=== PATIENT | female | born 1945 | race Caucasian/White ===

== ENCOUNTER 2023-02-27 10:00 | Outpatient (CLI) | payer MEDICARE, SELFPAY ==
[2023-02-27 10:18] LABS: Hematocrit 45.1 % (35.0-42.0); Hemoglobin 14.7 g/dL (11.7-13.8); Mean Corpuscular HGB Conc 32.6 g/dL (32.0-36.0); Mean Corpuscular Hemoglobin 29.8 pg (27.0-31.0); Mean Corpuscular Volume 91.5 fL (78.0-102.0); Mean Platelet Volume 9.4 fl (9.2-11.8); Platelet Count Result 223 K/mm3 (150-420); Red Blood Count 4.93 M/mm3 (4.20-5.40); Red Cell Distribution Width 12.9 % (11.6-14.4); White Blood Count 4.4 K/mm3 (4.8-10.8)
[2023-02-27 10:49] LABS: Alanine Aminotransferase 19 U/L (14-59); Alkaline Phosphatase 88 U/L (46-116); Anion Gap 6 mmol/L (8-16); Aspartate Amino Transferase 16 U/L (15-37); Bilirubin,Total 0.4 mg/dL (0.00-1.00); Blood Urea Nitrogen 13 mg/dL (7-18); Calcium 9.1 mg/dL (8.5-10.1); Carbon Dioxide 32 mmol/L (21-32); Chloride 103 mmol/L (98-108); Cholesterol 214 mg/dL (0-200); Estimated Glomerular Filt Rate 38; Glucose 115 mg/dL (70-99); HDL Direct 61 mg/dL (40-60); LDL Cholesterol Calculated 126 mg/dL (<130); Osmolality Calculated 293 mOsm/kg (285-295); Potassium 4.2 mmol/L (3.5-5.1); Sodium 141 mmol/L (136-145); Total Protein 7.6 g/dL (6.4-8.2); Triglycerides 133 mg/dL (0-150)
== END 2023-02-27 10:01 | disposition home or self-care (01) ==
LOC: CHSLAB 10:06
PROVIDERS: PCP Family Medicine; Visit Provider Family Medicine
DX: I25.10 Atherosclerotic heart disease of native coronary artery without angina pectoris (principal)
CPT/HCPCS: 36415; 80053; 80061; 85027

== ENCOUNTER 2023-03-09 13:38 | Outpatient (CLI) | payer MEDICARE, SELFPAY ==
--- NOTE | 2023-03-09 13:47 | ECHO_ITS ---
Patient Info Name: Lily Ruiz Age: 77 years : 1945 Gender: Female Ht: 62 in Wt: 132 lbs BSA: 1.63 m2 HR: 61 bpm BP: 151 / 82 mmHg Heart Rhythm: Sinus Rhythm Technical Quality: Fair Exam Date: 03/09/2023 2:14 PM Exam Location: [facility] Patient Status: Outpatient Admit Date: 03/09/2023 Staff Ordering Physician: Dangelo Cloud DO Banking Manager: Cassandra Bills RDCS Attending Provider: Dangelo Cloud DO Referring Physician: Pedro Luis PRITCHETT; Exam Type: CA echo doppler color flow Study Info Indications - Heart failure, I50.9 Complete two-dimensional, color flow and Doppler transthoracic echocardiogram is performed. Summary 1. Complete two-dimensional, color flow and Doppler transthoracic echocardiogram is performed. 2. Left ventricular chamber dimension is normal. 3. Left ventricular systolic function is normal, estimated at 65-70%. 4. The left ventricular diastolic function is grade II diastolic dysfunction. 5. E/e' 12 is mildly elevated. 6. There is mild aortic valve sclerosis. 7. There is mild aortic valve regurgitation. 8. There is trace mitral valve regurgitation. 9. There is moderate tricuspid valve regurgitation. 10. No pulmonary hypertension, estimated pulmonary arterial systolic pressure is 36 mmHg. 11. There is trace pulmonic regurgitation. Left Ventricle E/e' 12 is mildly elevated. Left ventricular chamber dimension is normal. Left ventricular systolic function is normal, estimated at 65-70%. The left ventricular diastolic function is grade II diastolic dysfunction. Right Ventricle Right ventricular systolic function is normal and with normal TAPSE 1.9 cm. Right ventricular chamber dimension is normal. Left Atria Left atrial chamber dimension is normal. Right Atria Right atrial chamber dimension is normal. Aortic Valve The aortic valve is trileaflet. There is mild aortic valve sclerosis. There is no aortic valve stenosis. There is mild aortic valve regurgitation. Pulmonic Valve There is trace pulmonic regurgitation. Mitral Valve There is no mitral valve stenosis. There is trace mitral valve regurgitation. Tricuspid Valve There is moderate tricuspid valve regurgitation. No pulmonary hypertension, estimated pulmonary arterial systolic pressure is 36 mmHg. Pericardium/Pleural There is no pericardial effusion. Inferior Vena Cava Normal inferior vena cava with >50% collapse upon inspiration consistent with normal right atrial pressure, 5 mmHg. Aorta The aortic root size at the sinus of Valsalva is normal. Pericardium Name Value Normal Pericardium 2D/MM Pericardial Effusion Diastole (MM) 2.8 cm Left Ventricular Outflow Tract Name Value Normal LVOT 2D LVOT Diameter 2.0 cm LVOT Doppler LVOT Peak Velocity 103 cm/s LVOT Peak Gradient 4 mmHg LVOT Mean Gradient 2 mmHg LVOT VTI
== END 2023-03-09 13:39 | disposition home or self-care (01) ==
LOC: CHSIMG 13:39
PROVIDERS: PCP Family Medicine; Visit Provider Family Medicine
DX: I50.9 Heart failure, unspecified (principal); I07.1 Rheumatic tricuspid insufficiency
CPT/HCPCS: 93306

== ENCOUNTER 2024-03-04 09:01 | Outpatient (CLI) | payer MEDICARE, SELFPAY ==
[2024-03-04 09:33] LABS: Basophils Absolute Auto 0.05 K/mm3 (0.00-0.10); Basophils Percent Auto 1.1 % (0.0-1.0); Eosinophils Percent Auto 4.4 % (1.0-6.0); Hematocrit 43.8 % (35.0-42.0); Hemoglobin 14.1 g/dL (11.7-13.8); Immature Granulocyte Absolute 0.02 K/mm3 (0.00-0.00); Immature Granulocyte Percent A 0.4 % (0.0-0.0); Lymphocytes Absolute Auto 1.06 K/mm3 (1.10-4.50); Lymphocytes Percent Auto 23.4 % (18.0-42.0); Mean Corpuscular HGB Conc 32.2 g/dL (32-36); Mean Corpuscular Hemoglobin 28.9 pg (27.0-31.0); Mean Corpuscular Volume 89.8 fL (78.0-102.0); Monocytes Absolute Auto 0.37 K/mm3 (0.10-0.90); Monocytes Percent Auto 8.2 % (2.0-11.0); Neutrophils Absolute Auto 2.83 K/mm3 (1.70-7.20); Neutrophils Percent Auto 62.5 % (50.0-70.0); Platelet Count Result 236 K/mm3 (150-420); Red Blood Count 4.88 M/mm3 (4.20-5.40); Red Cell Distribution Width 13.4 % (11.6-14.4); White Blood Count 4.5 K/mm3 (4.8-10.8)
[2024-03-04 10:08] LABS: Alanine Aminotransferase 21 U/L (14-59); Albumin Level 3.7 g/dL (3.4-5.0); Alkaline Phosphatase 69 U/L (46-116); Anion Gap 7 mmol/L (4-12); Aspartate Amino Transferase 16 U/L (15-37); Bilirubin,Total 0.5 mg/dL (0.00-1.00); Blood Urea Nitrogen 16 mg/dL (7-18); Calcium 9.3 mg/dL (8.5-10.1); Carbon Dioxide 31 mmol/L (21-32); Chloride 102 mmol/L (98-108); Cholesterol 176 mg/dL (0-200); Estimated Glomerular Filt Rate 40; Glucose 112 mg/dL (70-99); HDL Direct 64 mg/dL (40-60); LDL Cholesterol Calculated 94 mg/dL (<130); Osmolality Calculated 292 mOsm/kg (285-295); Potassium 4.1 mmol/L (3.5-5.1); Sodium 140 mmol/L (136-145); Total Protein 7.3 g/dL (6.4-8.2); Triglycerides 88 mg/dL (0-150)
[2024-03-04 10:09] LABS: Thyroid Stimulating Hormone Reflex 1.76 u/IU/mL (0.36-3.74)
== END 2024-03-04 09:02 | disposition home or self-care (01) ==
LOC: CHSLAB 09:02
PROVIDERS: PCP Family Medicine; Visit Provider Family Medicine
DX: E03.9 Hypothyroidism, unspecified (principal); I25.10 Atherosclerotic heart disease of native coronary artery without angina pectoris
CPT/HCPCS: 36415; 80053; 80061; 84443; 85025

== ENCOUNTER 2024-04-03 11:25 | Outpatient (CLI) | payer MEDICARE, SELFPAY ==
--- NOTE | ~2024-04-03 | DEXA_ITS ---
? Bone Density Report? Name:? GERMAINE VANEGAS Patient ID:??? [id number] Age:? 78 Sex:? Female Ethnicity:? White Date of : 1945 Indication: postmenopausal; screening for osteoporosis; height loss; Referring Provider: Dangelo Cloud Study: Bone densitometry was performed. Exam Date: April 03, 2024 Accession number: [id number] Bone Density: Region? BMD??? T-score? Z-score?? Classification AP Spine(L1, L2, L3)? 1.130??? 1.0?3.6? Normal Femoral Neck (Left)? 0.812?? -0.3? 2.0? Normal Total Hip (Left)? 0.840?? -0.8? 1.2? Normal Femoral Neck (Right)? 0.700?? -1.3? 1.0? Osteopenia Total Hip (Right)? 0.804?? -1.1? 1.0? Osteopenia Femoral Neck Mean? 0.756?? -0.8? 1.5? Normal Total Hip Mean? 0.822?? -1.0? 1.1? Normal World Health Organization criteria for BMD impression classify patients as: Normal (T-score at or above -1.0), Osteopenia (T-score between -1.0 and -2.5), or Osteoporosis (T-score at or below -2.5). 10-year Fracture Risk(1): Major Osteoporotic Fracture? 12% Hip Fracture? 2.7% Reported Risk Factors: [place] (), Neck BMD=0.700, BMI=22.0 (1) FRAX? Version 3.08. Fracture probability calculated for an untreated patient. Fracture probability may be lower if the patient has received treatment. Clinical Information Provided by Patient: Has used the following medications: Vitamin D Patient maximum height was 65 Menopause Age: 48 No regular weight bearing exercise Onset of menses at age 11 Number of children 0 Impression: The patient has low bone mass, based on the Right Femoral Neck T- score. Discussion: BONE DENSITY IS LOW AT ONE OR MORE SKELETAL SITES. This patient's lowest T-score is low at one or more skeletal sites.? It meets the World Health Organization's (WHO) criteria for ?low bone mass?? (T-score between -1.0 and -2.5).? The patient's 10-year risk of fracture as calculated by FRAX is less than the threshold where pharmacological therapy is recommended by the National Osteoporosis Foundation (NOF).? However, all treatment decisions require clinical judgment and consideration of individual patient factors, including patient preferences, comorbidities, previous drug use, risk factors not captured in the FRAX model (e.g., frailty, falls, vitamin D deficiency, increased bone turnover, interval significant decline in bone density) and possible under or overestimation of fracture risk by FRAX. The patient should follow a healthful lifestyle (good nutrition with adequate calcium and vitamin D, and appropriate weight-bearing exercise). Follow-Up: Consider repeating this study in 2 to 3 years to
== END 2024-04-03 11:26 | disposition home or self-care (01) ==
PROVIDERS: PCP Family Medicine; Visit Provider Family Medicine
DX: Z78.0 Asymptomatic menopausal state (principal); M85.89 Other specified disorders of bone density and structure, multiple sites
CPT/HCPCS: 77080

== ENCOUNTER 2025-03-10 10:34 | Outpatient (CLI) | payer MEDICARE, SELFPAY ==
--- OUTSIDE RECORDS SUMMARY | 2025-03-10 10:49 | XMS_ITS | Encounter Summary ---
Author Organization [facility] Address [address] [place] [id number] Care Team Providers Care Floor Specialist Name Role Phone Al Guadalupe MD Primary Care Provider [phone] Tien Sabillon MD Unavailable Unavailable Glen Morley MD Primary Care Provider Camilo Tobin MD Unavailable [phone] Adrianne Hinton APRN SUBSTATION OPERATOR TRANSFORMING-C Unavailable [phone] Devaughn Sandy MD Unavailable [phone] Encounter Details Date Type Department Care Team (Late st Contact Info) Description 03/29/2019 Abstract [facility] CONVERSION [address] [place] [address] , Generic Conversion, Social History Tobacco Use Types Packs/Day Years Used Date Smoking Tobacco: Never Smokeless Tobacco: Never Alcohol Use Standard Drinks/Week Comments No 0 (1 standard drink = 0.6 oz pur e alcohol) Comments Unknown Sex and Gender Information Value Date Recorded Sex Assigned at Not on file Legal Sex Female 7:53 PM CDT Gender Identity Not on file Sexual Orientation Not on file 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 Not on file Not on file documented as of this encounter Plan of Treatment Not on file documented as of this encounter Visit Diagnoses Not on filedocumented in this encounter Additional Health Concerns Infection Onset Date Last Indicated Resolved Time COVID-19 Rule Out 08/13/2021 08/13/2021 08/13/2021 8:03 PM CDT documented as of this encounter Care Teams Floor Specialist Relationship Specialty Start Date End Date Al Guadalupe MD [address] [place] [address] PCP - General FAMILY PRACTICE 11/03/16 08/01/21 Glen Morley MD [address] [place] [phone] PCP - General [facility] PRACTICE 08/02/21 Tien Sabillon MD [address] [place] [phone] [place] Digital Strategy Director INTERVENTIONAL CARDIOLOGY 11/01/18 Camilo Tobin MD [address] [place] [phone] Consulting Physician CARDIOVASCULAR DISEASE 08/14/21 Adrianne Hinton APRN, SUBSTATION OPERATOR TRANSFORMING-C [address] [place] [address] [address] [place] [address] NURSE PRACTITIONER 08/14/21 Devaughn Sandy MD [address] [facility] [place] [address] FAMILY PRACTICE 08/14/21 documented as of this encounter
--- OUTSIDE RECORDS SUMMARY | 2025-03-10 10:49 | XMS_ITS | Clinical Summary ---
Author Organization [facility] Address [address] [place] [address] Care Team Providers Care Woodyard Operator Name Role Phone Tien Sabillon MD Unavailable Unavailable Glen Morley MD Primary Care Provider Camilo Tobin MD Unavailable [phone] Adrianne Hinton APRN, GAS DESULFURIZER-C Unavailable Devaughn Sandy MD Unavailable [phone] Allergies No known active allergies Medications aspirin (ASPIR-81) 81 MG Tab EC Take 1 tablet by mouth daily. 2 Active carvedilol (COREG) 25 MG tablet Take 1 tablet by mouth 2 (two) times daily. 3 Active rosuvastatin (CRESTOR) 20 MG tablet Take 20 mg by mouth daily. 5 Active nitroGLYCERIN (NITROSTAT) 0.[address] 0.4 mg under the tongue every 5 (five) minutes as needed. 2 Active Liniments (SALONPAS) Pads Apply 1 each topically daily as needed. 5 Active AMLODIPINE 5 MG tablet TAKE 1 TABLET BY MOUTH DAILY 90 tablet 3 0 Active omeprazole 20 MG capsule Take 2 capsules (40 mg total) by mouth 2 (two) times daily. 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 file Not on file Not on file Not on file Not on file Not on file Last Filed Vital Signs Vital Sign Reading Time Taken Comments Blood Pressure 126/69 08/16/2021 1:05 PM CDT Pulse 58 08/16/2021 1:05 PM CDT Temperature 35.9 C (96.7 F) 08/16/2021 1:05 PM CDT Respiratory Rate 18 08/16/2021 1:05 PM CDT Oxygen Saturation 96% 08/16/2021 1:05 PM CDT Inhaled Oxygen Concentration - - Weight 56.8 kg (125 lb 3.2 oz) 08/12/2021 1:36 P M CDT Height 162.6 cm (5' 4 ) 08/12/2021 1:36 PM CDT Body Mass Index 21.49 08/12/2021 1:36 PM CDT Plan of Treatment Health Maintenance Due Date Last Done Comments ASCVD Statin 1945 DTaP, Tdap and Td Vaccines ( 1 - Tdap) 1962 Pneumococcal Vaccine: 50+ Years (1 of 2 - PCV) 1964 Annual Medicare Wellness Visit 2008 Dexa Scan (General) 2008 ASCVD LDL 04/23/2015 04/23/2014 Zoster Vaccines (2 of 3) 11/19/2016 09/24/2016 RSV Immunization or 60+ Years (1 - 1-dose 75+ series) 2018 COVID-19 Vaccine (3 - 2023-2 5 season) 2024 02/15/2021, 01/18/2021 Meningococcal B Vaccine Aged Out No l onger eligible based on patient's age to complete this topic Meningococcal Vaccine Aged Out No serina ananda eligible based on patient's age to complete this topic RSV Immunizations Under 20 Months Aged Out No longer eligible b ased on patient's age to complete this topic Procedures Procedure Name Priority Date/Time Associated Diagnosis Comments LIPID PANEL Routine 04/23/2014 12:00 AM CDT from Last 3 Months or Most Recently Relevant to Health Maintenance Results * LIPID PANEL (04/23/2014 12:00 AM CDT) TRIGLYCERIDES 83 0 - 150 mg/dl MEDINFORMATIX TO EPIC CONVERSION CHOLESTEROL 164 0 - 200 mg/dl MEDINFORMATIX TO EPIC CONVERSION HDL 69 40 - 59 mg/dl MEDINFORMATIX TO EPIC CONVERSION LDL CONVERSION 78 0 - 100 mg/dl MEDINFORMATIX TO EPIC CONVERSION CHOL/HDL RATIO 2.4 <4.0 (Calc) MEDINFORMATIX TO EPIC CONVERSION NON HDL CHOLESTEROL 95 0 - 130 mg/dL MEDINFORMATIX TO EPIC CONVERSION 04/23/2014 04/23/2014 Narrative MEDINFORMATIX TO EPIC CONVERSION - 05/27/2014 9:12 AM CDT Reviewed by TELLY May 27 2014 9:12:58:000AM us Generic Conversion Md [facility] Final R esult MEDINFORMATIX TO EPIC CONVERSION from Last 3 Months or Most Recently Relevant to Health Maintenance Insurance MEDICARE [address] [place] [address] MEDICARE [facility] Care Teams Woodyard Operator Relationship Specialty Start Date End Date Glen Morley MD [address] [place] [phone] PCP - General FAMILY PRACTICE 08/02/21 Tien Sabillon MD Roll Sand Control Worker INTERVENTIONAL CARDIOLOGY 11/01/18 Camilo Tobin MD [address] [place] [address] Consulting Physician CARDIOVASCULAR DISEASE 08/14/21 Adrianne Hinton, PERFORMANCE TEST CONSULTANT, GAS DESULFURIZER-C [address] [facility] [address] [place] [phone] NURSE PRACTITIONER 08/14/21 Devaughn Sandy MD [address] [facility] [place] [address] FAMILY PRACTICE 08/14/21
--- OUTSIDE RECORDS SUMMARY | 2025-03-10 10:49 | XMS_ITS | Encounter Summary ---
Author Organization [facility] Address [facility] [place] [address] Care Team Providers Care Breakdown Worker Name Role Phone Al Guadalupe MD Primary Care Provider [phone] Adam aLnda MD Unavailable [phone] Janell eSo NP Unavailable [phone] Tien Sabillon MD Unavailable Unavailable Glen Morley MD Primary Care Provider [phone] Camilo Tobin MD Unavailable [phone] Adrianne Hinton APRN, AUSTRALIAN RULES FOOTBALLER-C Unavailable Devaughn Sandy MD Unavailable [phone] Encounter Details Date Type Department Care Team (Late st Contact Info) Description 05/04/2015 [facility] [address] [place] [address] Adam Landa MD [address] [place] [address], [address] [place] [address] Social History Tobacco Use Types Packs/Day Years Used Date Smoking Tobacco: Never Alcohol Use Standard Drinks/Week Comments No 0 (1 standard drink = 0.6 oz pur e alcohol) Comments Unknown Sex and Gender Information Value Date Recorded Sex Assigned at Not on file Legal Sex Female 7:53 PM CDT Gender Identity Not on file Sexual Orientation Not on file 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 Not on file Not on file documented as of this encounter Plan of Treatment Not on file documented as of this encounter Visit Diagnoses Not on filedocumented in this encounter Additional Health Concerns Infection Onset Date Last Indicated Resolved Time COVID-19 Rule Out 08/13/2021 08/13/2021 08/13/2021 8:03 PM CDT documented as of this encounter Care Teams Breakdown Worker Relationship Specialty Start Date End Date Al Guadalupe MD [address] [place], [place] [phone] PCP - General FAMILY PRACTICE 11/03/16 08/01/21 Glen Morley MD [address] [place], [place] [phone] PCP - General FAMILY PRACTICE 08/02/21 Adam Landa MD [address] [place], [place] [phone] CARDIOVASCULAR DISEASE 11/03/16 9 Janell Seo NP [address] [phone] NURSE PRACTITIONER 11/03/16 10/31/18 Tien Sabillon MD [address] [facility] [address] [phone] [place] Front Window Cashier INTERVENTIONAL CARDIOLOGY 11/01/18 Camilo Tobin MD [address] [place] [address] Consulting Physician CARDIOVASCULAR DISEASE 08/14/21 dArianne Hinton APRN, AUSTRALIAN RULES FOOTBALLER-C [address] [facility] [address] [place] [address] NURSE PRACTITIONER 08/14/21 [place] [address] [place], [place] [address] [place] [address] FAMILY PRACTICE 08/14/21 documented as of this encounter
--- OUTSIDE RECORDS SUMMARY | 2025-03-10 10:49 | XMS_ITS | Encounter Summary ---
Author Organization [facility] Address [facility] [place] [address] Care Team Providers Care Environmental Research Scientist Name Role Phone Al Guadalupe MD Primary Care Provider [phone] Adam Landa MD Unavailable [phone] Janell Seo ELECTRIC TRANSFER OPERATOR Unavailable [phone] Tien Sabillon MD Unavailable Unavailable Glen Morley MD Primary Care Provider [phone] Camilo Tobin MD Unavailable [phone] Adrianne Hinton GAS WELL DRILLING MANAGER, ELECTRIC TRANSFER OPERATOR-C Unavailable Devaughn Sandy MD Unavailable [phone] Encounter Details Date Type Department Care Team (Late st Contact Info) Description 01/05/2018 Abstract [facility] CONVERSION [address] [place] [address] , Generic Conversion, Social History Tobacco Use [...] documented as of this encounter Care Teams Environmental Research Scientist Relationship Specialty Start Date End Date Al Guadalupe MD [address] [place] [phone] PCP - General FAMILY PRACTICE 11/03/16 08/01/21 Glen Morley MD [address] [place] [phone] PCP - General FAMILY PRACTICE 08/02/21 Adam Landa MD [address] [place] [phone] CARDIOVASCULAR DISEASE 11/03/16 Janell Mark NP [address] [place] [phone] NURSE PRACTITIONER 11/03/16 10/31/18 Tien Sabillon MD [address] [place] [phone] [place] Sales Account Director INTERVENTIONAL CARDIOLOGY 11/01/18 Camilo Tobin MD [address] [place] [phone] Consulting Physician CARDIOVASCULAR DISEASE 08/14/21 Adrianne Hinton APRN, ELECTRIC TRANSFER OPERATOR-C [address] [place] [phone] NURSE PRACTITIONER 08/14/21 Devaughn Sandy MD [address] [place] [address] [place] [address] FAMILY PRACTICE 08/14/21 documented as of this encounter
--- OUTSIDE RECORDS SUMMARY | 2025-03-10 10:49 | XMS_ITS | Encounter Summary ---
Author Organization [facility] Address [facility] [place] [address] Care Team Providers Care Practice Coordinator Name Role Phone Al Guadalupe MD Primary Care Provider [phone] Adam Landa MD Unavailable [phone] Janell Seo NP Unavailable [phone] Tien Sabillon MD Unavailable Unavailable Glen Morley MD Primary Care Provider Camilo Tobin MD Unavailable [phone] Adrianne Hinton APRN, FUEL CELL BINDER-C Unavailable Devaughn Sandy MD Unavailable [phone] Encounter Details Date Type Department Care Team (Late st Contact Info) Description 05/04/2015 Abstract [facility] [address] [place] [address] Adam Landa MD [address] [place] [address], [address] [place] [address] Social History Tobacco Use Types Packs/Day [...] 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 Not on file Not on file documented as of this encounter Plan of Treatment Not on file documented as of this encounter Visit Diagnoses Not on filedocumented in this encounter Additional Health Concerns Infection Onset Date Last Indicated Resolved Time COVID-19 Rule Out 08/13/2021 08/13/2021 08/13/2021 8:03 PM CDT documented as of this encounter Care Teams Practice Coordinator Relationship Specialty Start Date End Date Al Guadalupe MD [address] [place], [place] [phone] PCP - General FAMILY PRACTICE 11/03/16 08/01/21 Glen Morley MD [address] [place], [place] [phone] PCP - General FAMILY PRACTICE 08/02/21 Adam Landa MD [address] [place], [place] [phone] CARDIOVASCULAR DISEASE 11/03/16 9 Janell Seo NP [address] [phone] NURSE PRACTITIONER 11/03/16 10/31/18 Tien Sabillon MD [address] [facility] [address] [phone] [place] Bundle Wrapper INTERVENTIONAL CARDIOLOGY 11/01/18 Camilo Tobin MD [address] [place] [address] Consulting Physician CARDIOVASCULAR DISEASE 08/14/21 Adrianne Hinton APRN, FUEL CELL BINDER-C [address] [facility] [address] [place] [address] NURSE PRACTITIONER 08/14/21 [place] [address] [place], [place] [address] [place] [address] FAMILY PRACTICE 08/14/21 documented as of this encounter
[2025-03-10 10:55] LABS: Basophils Absolute Auto 0.08 K/mm3 (0.00-0.10); Basophils Percent Auto 1.7 % (0.0-1.0); Eosinophils Absolute Auto 0.21 K/mm3 (0.02-0.50); Eosinophils Percent Auto 4.4 % (1.0-6.0); Hematocrit 42.1 % (35.0-42.0); Hemoglobin 13.6 g/dL (11.7-13.8); Immature Granulocyte Absolute 0.01 K/mm3 (0.00-0.00); Immature Granulocyte Percent A 0.2 % (0.0-0.0); Lymphocytes Absolute Auto 1.27 K/mm3 (1.10-4.50); Lymphocytes Percent Auto 26.6 % (18.0-42.0); Mean Corpuscular HGB Conc 32.3 g/dL (32-36); Mean Corpuscular Hemoglobin 28.9 pg (27.0-31.0); Mean Corpuscular Volume 89.4 fL (78.0-102.0); Mean Platelet Volume 9.5 fl (9.2-11.8); Monocytes Absolute Auto 0.43 K/mm3 (0.10-0.90); Neutrophils Absolute Auto 2.78 K/mm3 (1.70-7.20); Neutrophils Percent Auto 58.1 % (50.0-70.0); Platelet Count Result 242 K/mm3 (150-420); Red Blood Count 4.71 M/mm3 (4.20-5.40); Red Cell Distribution Width 12.6 % (11.6-14.4); White Blood Count 4.8 K/mm3 (4.8-10.8)
[2025-03-10 11:31] LABS: Alanine Aminotransferase 15 U/L (6-35); Albumin Level 4.1 g/dL (3.5-5.1); Alkaline Phosphatase 74 U/L (38-126); Anion Gap 6 mmol/L (4-12); Aspartate Amino Transferase 24 U/L (14-36); Bilirubin,Total 0.7 mg/dL (0.2-1.3); Blood Urea Nitrogen 23 mg/dL (7-17); Calcium 9.2 mg/dL (8.4-10.2); Carbon Dioxide 25 mmol/L (22-30); Chloride 106 mmol/L (98-107); Cholesterol 182 mg/dL (0-200); Estimated Glomerular Filt Rate 38; Glucose 90 mg/dL (65-110); HDL Direct 58 mg/dL; LDL Cholesterol Calculated 101 mg/dL (<130); Osmolality Calculated 287 mOsm/kg (285-295); Potassium 4.4 mmol/L (3.4-5.0); Sodium 137 mmol/L (137-145); Triglycerides 115 mg/dL (<150)
[2025-03-10 12:35] LABS: Folic Acid 17.1 ng/mL (2.76->20)
[2025-03-10 12:39] LABS: Vitamin B12 > 1000.0 pg/mL (239-931)
[2025-03-14 14:58] LABS: Vitamin D 1,25 (OH)2 Total 63 pg/mL (18-72); Vitamin D2 1,25 (OH)2 <8 pg/mL; Vitamin D3 1,25 (OH)2 63 pg/mL
== END 2025-03-10 10:35 | disposition home or self-care (01) ==
LOC: CHSLAB 10:34
PROVIDERS: PCP Family Medicine; Visit Provider Family Medicine
DX: E53.8 Deficiency of other specified B group vitamins (principal); I25.10 Atherosclerotic heart disease of native coronary artery without angina pectoris; E03.9 Hypothyroidism, unspecified; E11.9 Type 2 diabetes mellitus without complications; N18.9 Chronic kidney disease, unspecified; E55.9 Vitamin D deficiency, unspecified
CPT/HCPCS: 36415; 80053; 80061; 82607; 82652; 82746; 83036; 84443; 85025